=== PATIENT | male | born 1985 | race Caucasian/White ===

== ENCOUNTER 2019-12-21 08:10 | Emergency (ER) | payer SELFPAY ==
[~2019-12-21] VITALS: Ht 177.8 cm; Wt 69.0 kg
[~2019-12-21 08:10] MED LIST: FLUSAL1005; MIRT30; MONT10T; VENL25
== END 2019-12-21 09:02 | disposition home or self-care (01) ==
LOC: ER 08:10
DX: R05 Cough (principal); Z20.828 Contact with and (suspected) exposure to other viral communicable diseases; F17.200 Nicotine dependence, unspecified, uncomplicated; Z88.0 Allergy status to penicillin
CPT/HCPCS: 71046; 99284-25

== ENCOUNTER 2021-03-31 14:26 | Emergency (ER) | payer OTHER ==
[~2021-03-31] VITALS: Ht 182.9 cm; Wt 68.0 kg
== END 2021-03-31 14:40 | disposition left against medical advice (07) ==
LOC: ER 14:26
DX: R51.9 Headache, unspecified (principal); M54.2 Cervicalgia; Z53.21 Procedure and treatment not carried out due to patient leaving prior to being seen by health care provider
CPT/HCPCS: 99282